=== PATIENT | female | born 1980 ===

== ENCOUNTER 2018-09-25 17:37 | Outpatient (CLI) | payer OTHER ==
[2018-09-25 18:03] LABS: BASOPHILS # (AUTO) 0.1 10^3/uL (0.0-0.1); EOSINOPHILS # (AUTO) 0.2 10^3/uL (0.0-0.7); EOSINOPHILS % (AUTO) 2.6 %; HGB - HEMOGLOBIN 13.6 g/dL (12.0-16.0); LYMPHOCYTES # (AUTO) 2.2 10^3/uL (1.5-3.5); LYMPHOCYTES % (AUTO) 33.5 %; MEAN CORPUSCULAR HEMOGLOBIN 29.9 pg (27.0-31.0); MEAN PLATELET VOLUME 7.1 fL (7.9-10.8); MONOCYTES # (AUTO) 0.5 10^3/uL (0.0-1.0); MONOCYTES % (AUTO) 7.8 %; NEUTROPHILS # (AUTO) 3.6 10^3/uL (1.5-6.6); NEUTROPHILS % (AUTO) 55.1 %; PLT - PLATELET COUNT 292 10^3/uL (130-450); RED BLOOD COUNT 4.55 10^6/uL (4.20-5.40); RED CELL DISTRIBUTION WIDTH 13.1 % (12.0-15.0); WHITE BLOOD COUNT 6.6 x10^3/uL (4.8-10.8)
[2018-09-25 18:13] LABS: CREATININE 0.6 mg/dL (0.4-1.0)
[2018-09-25 18:14] LABS: HCG UR QUAL NEGATIVE
== END 2018-09-25 17:38 | disposition home or self-care (01) ==
LOC: LAB 17:37
PROVIDERS: ATTEND Obstetrics & Gynecology
DX: N93.9 Abnormal uterine and vaginal bleeding, unspecified (principal); D25.9 Leiomyoma of uterus, unspecified
CPT/HCPCS: 36415; 80048; 81025; 85025; 86850; 86900; 86901

== ENCOUNTER 2018-09-27 08:53 | Inpatient (IN) | payer OTHER ==
[2018-09-27] MEDS ORDERED: BUPIVACAINE 0.25%-EPI 1:200000 PF 30 ML VIAL ONE (09:04)
[2018-09-27] MEDS ORDERED: LIDOCAINE 1%-EPI 1:100000 30 ML MDV ONE (09:06)
[2018-09-27] MEDS ORDERED: BUPIVACAINE 0.25% PF 10 ML VIAL ONE (09:06)
[2018-09-27] MEDS ORDERED: ceFAZolin 2 GM/50 ML 2 GM/50 ML BAG IV ONE (09:15)
--- NOTE | 2018-09-27 09:17 | ANESTHESIA ---
Pre-Anesthesia VS, & Labs - Diagnosis abnormal uterine bleeding - Procedure LAVH, w/bilat salpinjectomies, possible KRISTIAN, cystoscopy Vital Signs: Last Vital Signs Temp 36.2 C L 09/27/18 09:16 Pulse 49 L 09/27/18 09:16 Resp 18 09/27/18 09:16 BP 120/65 09/27/18 09:16 Pulse Ox 100 09/27/18 09:16 Height 4 ft 11.5 in Weight (kg) 61.69 kg - NPO >8 hours - Is Patient ?: No - Lab Results Lab results reviewed: Yes Home Medications and Allergies Home Medications: Ambulatory Orders Cyanocobalamin (Vitamin B-12) [Vitamin B-12 (1000 mcg sublingual)] 1,000 mcg SL 09/03/18 Ibuprofen [Motrin] 800 mg PO Q8H PRN 09/03/18 Cyanocobalamin (Vitamin B-12) [Vitamin B-12 (1000 mcg sublingual)] 1,000 mcg SL 09/03/18 Ibuprofen [Motrin] 800 mg PO Q8H PRN 09/03/18 Allergies/Adverse Reactions: Allergies Allergy/AdvReac Type Severity Reaction Status Date / Time No Known Drug Allergies Allergy Verified 09/03/18 09:03 Anes History & Medical History - Anesthetic History Anesthesia Complications: reports: No previous complications Family history of Anesthesia Complications: Denies Family history of Malignant Hyperthermia: Denies - Medical History Cardiovascular: reports: None Pulmonary: reports: None Gastrointestinal: reports: None Urinary: reports: Other Musculoskeletal: reports: None Endocrine/Autoimmune: reports: None Skin: reports: None - Surgical History Other Past Surgical History: wisdom teeth extraction in office Exam General: Alert, Oriented x3, Cooperative Dental: WNL Mouth Openin Fingerbreadth Neck Mobility: Normal Mallampati classification: II Thyromental Distance: 4-6 cm Respiratory: Lungs clear, Normal breath sounds, No respiratory distress Cardiovascular: Regular rate Neurological: Normal speech Mental/Cognitive Status: Alert/Oriented X3, Normal for patient Cognitive Status: Within normal limits Plan Anesthesia Type: General Consent for Procedure(s) Verified and Reviewed: Yes Code Status: Attempt Resuscitation ASA classification: 2-Mild systemic disease Is this case an emergency?: No
[2018-09-27] MEDS ORDERED: LACTATED RINGERS 1,000 ML IV ONE ×3 (09:46→11:38)
[2018-09-27] MEDS ORDERED: LIDOCAINE 1%-EPI 1:100000 30 ML MDV SUBQ ONE ×2 (09:49→13:53)
[2018-09-27] MEDS ORDERED: BUPIVACAINE 0.25% PF 30 ML VIAL SUBQ ONE ×3 (09:49→13:53)
[2018-09-27] MEDS ORDERED: ACETAMINOPHEN 1,000 MG/100 ML 100 ML IV ONE (12:00)
[2018-09-27] MEDS ORDERED: DEXAMETHASONE 4 MG/ML VIAL IVP ONE (12:00)
[2018-09-27] MEDS ORDERED: ESMOLOL 100 MG/10 ML VIAL IVP ONE (12:00)
[2018-09-27] MEDS ORDERED: PROPOFOL 200 MG/20 ML VIAL IVP ONE (12:00)
[2018-09-27] MEDS ORDERED: KETOROLAC 30 MG/ML VIAL IVP ONE (12:00)
[2018-09-27] MEDS ORDERED: MIDAZOLAM 2 MG/2 ML VIAL IVP ONE (12:00)
[2018-09-27] MEDS ORDERED: ONDANSETRON 4 MG/2 ML VIAL IVP ONE (12:00)
[2018-09-27] MEDS ORDERED: fentaNYL 250 MCG/5 ML VIAL IVP ONE (12:00)
[2018-09-27] MEDS ORDERED: LIDOCAINE-MPF 2% 5 ML VIAL IM ONE (12:00)
[2018-09-27] MEDS ORDERED: METHYLENE BLUE 0.5% 50 MG/10 ML AMPULE ONE (13:16)
[2018-09-27] MEDS ORDERED: MORPHINE 10 MG/ML VIAL IVP PRN (14:07)
[2018-09-27] MEDS ORDERED: ONDANSETRON 4 MG/2 ML VIAL IVP PRN (14:07)
[2018-09-27] MEDS ORDERED: oxyCODONE 5 MG TABLET PO PRN (14:08)
[2018-09-27] MEDS ORDERED: ACETAMINOPHEN 500 MG TABLET PO PRN (14:09)
--- NOTE | 2018-09-27 14:18 | OPERATIVE REPORT ---
Operative Report - General Admit Date: 09/27/18 Procedure Date: 09/27/18 Planned Procedure: Laparoscopic-assisted vaginal hysterectomy with bilateral salpingectomies Pre-Op Diagnosis: Abnormal uterine bleeding, Dysmenorrhea, Uterine fibroids Procedure Performed: Laparoscopic-assisted vaginal hysterectomy with bilateral salpingectomies, diagnostic cystoscopy Post Op Diagnosis: EVY - Procedure Note Primary Surgeon: Dr. Angeles Conde Secondary Surgeon: Dr. Adis Mckinney Anesthesia Provider: Dr. Donell Gillette Anesthesia Technique: General ET tube, Local Pathology: Uterus, cervix, bilateral fallopian tubes, and fibroids IV Fluids (mL): 1,200 Estimated Blood Loss (mL): 140 Urine Output (mL): 300 Indications: The patient is a 38-year-old 2, para 0, abortus 2 female here for hysterectomy for definitive surgical management of bothersome, long-standing menorrhagia, dysmenorrhea, and dyspareunia due to fibroid uterus. She has also had infertility, and the couple tried to conceive for several years using multiple modalities. She is now done pursuing fertility and desires to proceed with definitive surgical management of her uterine fibroids. Endometrial biopsy was attempted in the clinic but was not successful due to difficulty entering the endometrial cavity. After full counseling regarding management options, including hormonal therapy, progestin intrauterine device, removal of the fibroids alone surgically, uterine artery embolization, and endometrial ablation, she strongly felt that definitive surgical management in the form of hysterectomy would be her preferred modality. She has no history of anemia or lightheadedness or dizziness related to menorrhagia. Her menses occur every 28 days, and she describes 5 days of very heavy bleeding with clots, use of super plus tampons, and at least one day per cycle when she has leaked into her clothes. She also describes deep dyspareunia, postcoital bleeding, and int ermenstrual bleeding. She does have history of cervical dysplasia, as well, with last abnormal Pap smear being in 2007. Her most recent ultrasound noted an anteverted uterus measuring 12.5 cm in length, 8-9 cm in width, and 6-7 cm anterior posterior dimension. It was bulky with at least 4 uterine fibroids, the largest in the lower uterine segment on the right, measuring 5.4 x 4.9 x 5.5 cm. At the left fundus, there is a 3.9 x 4.2 x 3.4 cm fibroid. Two additional fibroids are seen in the left body, the larger and more inferior measuring 2.5 x 3.4 x 4.5 cm and the smaller, more medial measuring 2.5 x 2.5 x 1.9 cm. The endometrial canal echo was homogeneous and appeared normal. The ovaries also appeared normal. The risks, benefits, limitations, alternatives, and expectations of surgery were discussed, and the consent was reviewed and signed prior to the date of surgery. Findings: Exam under anesthesia: 12-week size uterus that was anteverted, bulky, and filling the pelvis. It was minimally mobile and with minimal descent into the vagina. Laparoscopic findings: The uterus was approximately 12 weeks in size with multiple fibroids, the largest of which appeared to be a 4 cm one at the left fundus, a 4-5 cm one at the posterior lower uterine segment, and another 3-4 cm 1 within the body of the uterus. A small, pedunculated fibroid was noted anteri alma, and measured approximately 2-3 cm. The fallopian tubes and ovaries were normal in appearance bilaterally with the exception of a 1-2 cm simple appearing cyst at the right ovary. There were no adhesions or endometriosis lesions noted. The liver edge appeared normal. The gallbladder appeared slightly dilated. The weight of the total uterus and fibroids was 380 gm. Cystoscopic findings: Ureteral orifices were seen bilaterally and jets of blue urine were noted readily. There was no evidence of bladder injury or trauma. Complications: None - Other Other Information/Narrative: Procedure: The patient was taken to the operating room, where general endotracheal anesthesia was administered without difficulty. She was then positioned with her lower extremities in yellow-fin stirrups. Exam under anesthesia was then performed with the findings as noted above. Perineum, vagina, and abdomen were then prepped and draped in sterile fashion, and a ledezma catheter was placed. Time out was then performed. Attention was first turned to placement of a uterine manipulator. A sterile bivalve speculum was inserted, and the cervix grasped with a single-toothed tenaculum. The cervix was then dilated until a HUMI uterine manipulator could be placed and balloon inflated. The tenaculum and speculum were then removed. Attention was then turned to the laparoscopy. 0.25% Marcaine, plain, was injected infraumbilically, then a 7-mm vertical skin incision made. A Verrees needle was then inserted through the anterior layers of the abdominal wall with saline drop test suggesting intraperitoneal placement. Carbon dioxide gas insufflation was then performed with appropriate opening pressures noted. Once 2 L of gas was instilled, a 0-degree, 5 mm laparoscope was inserted into a 5 mm trocar and passed through the anterior layers of the abdominal wall using Optiview technique. The abdomen was visualized, then 2 additional ports placed at the right and left lower quadrants, first instilling local anesthetic then placing 5 mm ports. The patient was placed into Trendelenberg and bowel swept out of the cul-de-sac. The right distal fallopian tube was grasped and pulled anteriorly while the right tubo-ovarian ligament was cross-clamped, cauterized, and cut using the PlasmaKinetic. This incision was then extended medially across the mesosalpinx until the cornual region was reached. The right round ligament was then cross- clamped, cauterized, and cut, then the anterior leaf of the broad ligament undermined, cauterized, and cut starting the bladder flap dissection on the right. The right utero-ovarian pedicle was then cross-clamped, cauterized, and cut, then this incision extended into the peritoneum inferiorly. The procedure on the right was then paused, as the right uterine vessels were not readily apparent. The dissection was then performed on the left using similar technique. A 3-degree scope was used to visualize the bladder around the front a the large mid-body fibroid, which was grasped with a laparoscopic tenaculum to retract the uterus. Once the bladder flap was fully created, the left uterine vessels were then skeletonized, cross-clamped, cauterized, and cut. Attention was then returned to the right side, where the right uterine vessels were cross- clamped, cauterized, and cut. Any bleeding was controlled with cautery. The trocars were left in situ as well as the majority of the gas while attention was turned to the vaginal portion of the case. The lower extremities were elevated to high lithotomy, and the uterine manipulator was removed and a sterile weighted speculum placed. The cervix was grasped with a double-toothed tenaculum, then 1% Lidocaine with epinephrine was injected circumferentially for hemostasis. A circumferential incision was then made with cauterization. The posterior cul-de-sac was then entered with sharp dissection the [id number] at the peritoneum, and an Auvard speculum. The left, then right, uterosacral ligament was cross-clamped, cut, and suture- ligated with 0 vicryl. These were tagged for later identification. The anterior cul-de-sac was then entered bluntly using a moist sponge and the insulating machine operator's finger. Two additional pedicles were secured on each side. The uterus was bivalved, grasping each side with a tenaculum and applying inferior traction. Due to the multiple fibroids, extensive debulking was required performing myomectomy x 4, until the uterus could be removed. The pedicles were visualized, and some bleeding at the right cuff was controlled with [id number] suture of 0-vicryl. The peritoneum was then closed with a purse-string suture of 0 vicryl, then the vaginal cuff was irrigated with sterile saline. The vaginal mucosa was then closed with serial figure of eight sutures of 0 vicryl. Given the large, bulky nature of the uterus and lateral dissection required, the decision was made to perform a diagnostic cystoscopy. Methylene blue 10 ml was given intravenously. Once the vaginal cuff was closed, the Ledezma catheter balloon was deflated and the Ledezma catheter removed temporarily. A 70-degree cystoscope was then inserted into the urethra and bladder. Using sterile saline, the bladder was fully visualized. The ureteral orifices were noted, and a jet of methylene blue-dyed urine was seen on each side. Visualization of the bladder noted no evidence of injury. At this point the cystoscope was removed and the Ledezma catheter replaced with the balloon inflated. A sponge stick was placed, and attention returned to laparoscopy to visualize the cuff for bleeding. The lower extremities were replaced into low lithotomy. Gas was instilled again, and the dissections site noted to have some bleeding at the left peritoneal edge just above the cuff. This was cauterized then hemostatic. Copious irrigation was performed. At this point the procedure was deemed complete. The gas was allowed to escape, and the trocars removed. The incisions were then closed with 4-0 monocryl in a subcuticular fashion followed by Dermabond. The sponge stick was removed from the vagina. The patient was then replaced supine, awakened, extubated, and transferred to the PACU in stable condition. There were no complications. Sponge, lap, and needle count were correct x 3.
[2018-09-27] MEDS ORDERED: ONDANSETRON 4 MG/2 ML VIAL ONE (14:38)
[2018-09-27] MEDS ORDERED: METOCLOPRAMIDE 10 MG/2 ML VIAL ONE (14:59)
[2018-09-27] MEDS: KETOROLAC 30 MG/ML VIAL IVP SCH ×2 (17:03→20:54)
[2018-09-27] MEDS: SIMETHICONE CHEW 80 MG TABLET PO PRN (18:45)
[2018-09-27] MEDS: LACTATED RINGERS 1,000 ML IV SCH (18:45)
[2018-09-27] MEDS: DOCUSATE SODIUM 100 MG CAPSULE PO SCH (20:54)
[2018-09-28] MEDS: KETOROLAC 30 MG/ML VIAL IVP SCH ×2 (03:27→09:31)
[2018-09-28] MEDS ORDERED: SODIUM CHLORIDE FLUSH 0.9% 10 ML SYRINGE ONE ×2 (03:28→03:40)
[2018-09-28] MEDS: LACTATED RINGERS 1,000 ML IV SCH (04:12)
[2018-09-28 06:15] LABS: BASOPHILS % (AUTO) 0.1 %; EOSINOPHILS % (AUTO) 0.2 %; HGB - HEMOGLOBIN 11.1 g/dL (12.0-16.0); LYMPHOCYTES % (AUTO) 17.3 %; MEAN CORPUSCULAR HEMOGLOBIN 28.7 pg (27.0-31.0); MEAN CORPUSCULAR HGB CONC 32.6 g/dL (32.0-36.0); MEAN CORPUSCULAR VOLUME 88.3 fL (81.0-99.0); MEAN PLATELET VOLUME 7.5 fL (7.9-10.8); MONOCYTES # (AUTO) 0.9 10^3/uL (0.0-1.0); MONOCYTES % (AUTO) 7.5 %; NEUTROPHILS # (AUTO) 8.8 10^3/uL (1.5-6.6); NEUTROPHILS % (AUTO) 74.9 %; PLT - PLATELET COUNT 254 10^3/uL (130-450); RED BLOOD COUNT 3.86 10^6/uL (4.20-5.40); RED CELL DISTRIBUTION WIDTH 13.3 % (12.0-15.0); WHITE BLOOD COUNT 11.8 x10^3/uL (4.8-10.8)
[2018-09-28 08:27] VITALS: BP 90/51
[2018-09-28] MEDS: SIMETHICONE CHEW 80 MG TABLET PO PRN (09:30)
[2018-09-28] MEDS: DOCUSATE SODIUM 100 MG CAPSULE PO SCH (09:30)
--- NOTE | 2018-09-28 14:07 | Discharge Plan ---
Discharge Plan Disposition: 01 Home, Self Care Diet: Regular Activity Restrictions: See handout Shower Restrictions: No Driving Restrictions: Yes (OK to drive once pain-free off narcotic pain meds) Additional Instructions or Follow Up instructions: See handout No Smoking: If you smoke, Please STOP! Call for help.
--- NOTE | 2018-09-28 14:10 | DISCHARGE SUMMARY ---
"Discharge Summary Admit Date: 09/27/18 Discharge Date: 09/28/18 Discharging Provider: Dr. Angeles Conde Code Status: Attempt Resuscitation Condition at Discharge: Good - DIAGNOSES Admission Diagnoses: Abnormal uterine bleeding, pelvic pain, uterine fibroids Discharge Diagnoses with Status of Each Condition: EVY now s/p LAVH, bilateral salpingectomies, and diagnostic cystoscopy - [facility] History of Present Illness: See admission H&P - CONSULTS | PROCEDURES Procedures: LAVH, bilateral salpingectomies, and diagnostic cystoscopy - HOSPITAL COURSE Hospital Course: After an uncomplicated surgery the patient was admitted to the recovery room and then the javed in stable condition. She had a Monroe catheter in her bladder overnight, and pain was well controlled with IV Toradol with morphine for breakthrough pain. On postoperative day #1, her Monroe catheter was removed, and she met her due to void without any problems. Diet was advanced as tolerated he r vital signs were within normal limits, and she was feeling well and ready for discharge. She was discharged home on postoperative day #1 ambulate in, tolerating regular diet, controlling pain with oral pain medications, and voiding freely. - ALLERGIES Allergies/Adverse Reactions: Allergies Allergy/AdvReac Type Severity Reaction Status Date / Time No Known Drug Allergies Allergy Verified 09/03/18 09:03 - MEDICATIONS Home Medications: Ambulatory Orders Medication Instructions Recorded Confirmed Cyanocobalamin (Vitamin B-12) 1,000 mcg SL DAILY 09/03/18 09/27/18 [Vitamin B-12 (1000 mcg sublingual)] Ibuprofen [Motrin] 800 mg PO Q8H PRN 09/03/18 09/27/18 Home Medications Other | Comments: Patient already has prescriptions for motrin, percocet, and surfak. - PHYSICAL EXAM AT DISCHARGE General Appearance: positive: No acute distress Eyes Bilateral: positive: Normal inspection Respiratory: positive: No respiratory distress, Breath sounds nml Cardiovascular: positive: Regular rate & rhythm, No murmur Abdomen: positive: No distention, Tenderness (appopriate for postop) Skin: positive: Other (Incisions well-approximated and covered with Dermabond. No erythema, separation, or discharge present.) Extremities: positive: Non-tender, Nml appearance Neurologic/Psychiatric: positive: Oriented x3, Mood/affect nml - LABS Result Diagrams: 09/28/18 05:25 - QUALITY (Female Hip Fx Only) Was patient sent home on osteoporosis medication?: No - FOLLOW UP Follow Up: [id number] at 0845 at [facility] - TIME SPENT Time Spent in Discharge (Minutes): 15"
== END 2018-09-28 14:26 | disposition home or self-care (01) | DRG 743 ==
LOC: MS2 08:53
PROVIDERS: ADMIT Obstetrics & Gynecology; ATTEND Obstetrics & Gynecology
PROC: 0UT7FZZ Resection of Bilateral Fallopian Tubes, Via Natural or Artificial Opening With Percutaneous Endoscopic Assistance (ICD-10-PCS; 2018-09-27)
PROC: 0TJB8ZZ Inspection of Bladder, Via Natural or Artificial Opening Endoscopic (ICD-10-PCS; 2018-09-27)
PROC: 0UT9FZZ Resection of Uterus, Via Natural or Artificial Opening With Percutaneous Endoscopic Assistance (ICD-10-PCS; principal; 2018-09-27 10:30)
DX: D25.1 Intramural leiomyoma of uterus (principal); D25.0 Submucous leiomyoma of uterus; D25.2 Subserosal leiomyoma of uterus; N80.0 Endometriosis of uterus; F17.210 Nicotine dependence, cigarettes, uncomplicated
CPT/HCPCS: 36415; 85025; A9270; J0131; J0690; J2765; J3010; J7120